=== PATIENT | female | born 1985 | race Caucasian/White ===

== ENCOUNTER 2021-05-18 19:21 | Emergency (ER) | payer OTHER, SELFPAY ==
--- NOTE | ~2021-05-18 | XR_ITS ---
XR chest 1V portable DATE: 05/18/2021 19:58 INDICATION: Chest pain, tachycardia TECHNIQUE: Portable AP chest on 05/18/2021 at 1955 hours COMPARISON: None FINDINGS: Normal heart size. No pulmonary infiltrate or consolidation, pleural effusion or pulmonary vascular congestion or pneumothorax. IMPRESSION: Negative Reviewed, dictated and finalized at location A. V BELT INSPECTOR IMPRESSION: Negative
--- NOTE | 2021-05-18 19:23 | ECG_ITS ---
Measurements Intervals [place] Rate: 123 P: 28 PA: 133 QRS: 35 QRSD: 86 T: 4 QT: 311 QTc: 446 Interpretive Statements SINUS TACHYCARDIA CONSIDER INFERIOR INFARCT, AGE INDETERMINATE BASELINE ARTIFACT- II, III, AVF ABNORMAL ECG Electronically Signed On 05-18-2021 20:45:20 [employer] by Moise Davies D.O.
[2021-05-18 19:24] VITALS: BP 150/109; PULSE 112; RESP 18; TEMP 36.1; O2SAT 100
[2021-05-18 20:20] LABS: Alanine Aminotransferase 46 U/L (4-35); Albumin Level 4.7 g/dL (3.5-5.1); Alkaline Phosphatase 88 U/L (38-126); Anion Gap 11 mmol/L (8-16); Aspartate Amino Transferase 35 U/L (14-36); Bilirubin,Total 0.3 mg/dL (0.2-1.3); Blood Urea Nitrogen 8 mg/dL (7-17); Calcium 9.2 mg/dL (8.4-10.2); Carbon Dioxide 22 mmol/L (22-30); Chloride 105 mmol/L (98-107); Estimated CRCL calculation 130 ml/min; Estimated Glomerular Filt Rate > 60; Glucose 151 mg/dL (65-110); Lipase 70 U/L (23-300); Potassium 4.1 mmol/L (3.4-5.0); Sodium 138 mmol/L (137-145)
[2021-05-18 20:27] LABS: Partial Thromboplastin Time 32.2 SECONDS (22.3-36.8); Prothrombin Time 12.6 Seconds (11.1-14.7)
[2021-05-18 20:32] LABS: Troponin I < 0.012 ng/mL (0.000-0.034)
[2021-05-18 20:58] LABS: Basophils Percent Auto 0.5 % (0.2-1.2); Eosinophils Absolute Auto 0.1 K/mm3 (0-0.3); Eosinophils Percent Auto 1.4 % (0-4.4); Hematocrit 44.8 % (37.0-47.0); Hemoglobin 15.6 g/dL (12.0-15.0); Immature Granulocyte Absolute 0.01 K/mm3 (0.00-0.031); Immature Granulocyte Percent A 0.2 % (0-0.5); Lymphocytes Absolute Auto 2.58 K/mm3 (0.9-3.2); Mean Corpuscular HGB Conc 34.8 g/dl (32-36); Mean Corpuscular Hemoglobin 31.8 pg (26-34); Mean Corpuscular Volume 91.4 fl (80-100); Mean Platelet Volume 10.2 fl (7.4-10.4); Monocytes Absolute Auto 0.6 K/mm3 (0.1-0.6); Monocytes Percent Auto 10.6 % (2.6-8.5); Neutrophils Absolute Auto 2.6 K/mm3 (1.3-6.7); Neutrophils Percent Auto 43.3 % (45.5-73.1); Platelet Count Result 291 k/mm3 (150-375); Red Cell Distribution Width 12.9 % (11.5-14.5); White Blood Count 5.9 K/mm3 (4.5-10.0)
[2021-05-18 21:45] VITALS: BP 126/84; PULSE 105; RESP 18; O2SAT 99
[2021-05-18 22:21] VITALS: BP 131/95; PULSE 102; RESP 24; O2SAT 97
[2021-05-18 22:26] VITALS: PULSE 94
--- NOTE | 2021-05-18 22:28 | ED.CHESTPAIN ---
HPI - Chest Pain General Chief Complaint: Chest Pain Stated Complaint: CP - COVID exposure Time Seen by Provider: 05/18/21 22:21 Source: patient Mode of arrival: ambulatory Limitations: no limitations and clinical condition History of Present Illness HPI narrative: Patient presents with intermittent central chest discomfort for the last 2 days associated with coughing, fever, and possible Covid symptoms. Patient was diagnosed of Covid 2 weeks ago, her daughter was diagnosed of Covid 1 week ago, patient is not vaccinated, did not get the Covid test yet. MD complaint: chest pain Related Data Home Medications Medication Instructions Recorded Confirmed albuterol sulfate [ProAir HFA] 1 puff INHALATION PRN 05/18/21 05/18/21 fluticasone furoate-vilanterol 1 inh INHALATION HS 05/18/21 05/18/21 [Breo Ellipta] hydroxyzine HCl 20 mg PO HS 05/18/21 05/18/21 lisinopril 10 mg PO PRN 05/18/21 05/18/21 loratadine 10 mg PO HS 05/18/21 05/18/21 montelukast mg HS 05/18/21 Allergies Allergy/AdvReac Type Severity Reaction Status Date / Time nifedipine AdvReac Rash Verified 05/18/21 22:38 Review of Systems Review of Systems: CONSTITUTIONAL: Denies fever, chills, or sweats. EYES: Denies visual changes, redness, or discharge. ENT: Denies rhinorrhea, congestion, sore throat, or otalgia. CARDIOVASCULAR: Denies chest pain, palpitations, or edema. RESPIRATORY: Denies cough or dyspnea. GASTROINTESTINAL: Denies abdominal pain, nausea, vomiting, or diarrhea. GENITOURINARY: Denies dysuria or hematuria. SKIN: Denies rash or itching. MUSCULOSKELETAL: Denies back pain, joint pain, or myalgia. NEUROLOGIC: Denies headache, numbness, or weakness. PSYCHIATRIC: Denies anxiety or depression. Exam Narrative: General appearance: Well-developed, well-nourished Skin: Normal color Head: Normocephalic, nontraumatic Eyes: Clear conjunctiva ENT: Oropharynx normal, ears normal, nose normal Neck: Supple, nontender Chest and respiratory: Airway patent, no respiratory distress, no accessory muscle use Heart: Tachycardia Abdomen: Soft, nontender, no organomegaly, quiet bowel sounds Vascular: Normal peripheral pulses, normal capillary refill. Musculoskeletal: Normal range of motion, nontender back Neurologic: Alert and oriented ?3, BUTT TRIMMER is normal as tested, no gross motor deficit Course Course Emergency Course: Stable Vital Signs Vital signs: Vital Signs Temperature 36.1 C L 05/18/21 19:24 Pulse Rate 112 H 05/18/21 19:24 Respiratory Rate 18 05/18/21 19:24 Blood Pressure 150/109 H 05/18/21 19:24 Pulse Oximetry 100 05/18/21 19:24 Temperature 36.1 C L 05/18/21 19:24 Pulse Rate 94 05/18/21 22:26 Respiratory Rate 24 H 05/18/21 22:21 Blood Pressure 131/95 H 05/18/21 22:21 Pulse Oximetry 97 05/18/21 22:21 MDM - Chest Pain MDM Narrative Medical decision making narrative: Patient presents with intermittent retrosternal pain, plus Covid symptoms Differential Diagnosis Differential diagnosis: Likely pneumothorax, stable angina, atypical chest pain, costochondritis and chest pain Lab Data Result diagrams: 05/18/21 19:51 05/18/21 19:51 Labs: Lab Results 05/18/21 05/18/21 05/18/21 Range/Units 19:51 19:51 19:51 WBC 5.9 (4.5-10.0) K/mm3 RBC 4.90 (4.2-5.4) M/mm3 Hgb 15.6 H (12.0-15.0) g/dL Hct 44.8 (37.0-47.0) % MCV 91.4 (80-100) fl MCH 31.8 (26-34) pg MCHC 34.8 (32-36) g/dl RDW 12.9 (11.5-14.5) % Plt Count 291 (150-375) k/mm3 MPV 10.2 (7.4-10.4) fl Immature Gran % (Auto) 0.2 (0-0.5) % Neut % (Auto) 43.3 L (45.5-73.1) % Lymph % (Auto) 44.0 (18.3-
[2021-05-18 23:14] LABS: D Dimer 0.66 ug/mL (<0.48)
[2021-05-18 23:27] VITALS: BP 130/89; PULSE 90; RESP 17; O2SAT 98
[2021-05-18 23:29] LABS: Troponin I < 0.012 ng/mL (0.000-0.034)
[2021-05-19 00:33] VITALS: PULSE 87; RESP 15; O2SAT 99
[2021-05-19 19:36] LABS: SARS-CoV-2 RNA PCR Positive
== END 2021-05-19 00:34 | disposition home or self-care (01) ==
LOC: ANHED 22:57
PROVIDERS: Emergency Medicine; Emergency Provider Emergency Medicine
DX: U07.1 COVID-19 (principal); R07.89 Other chest pain; R00.0 Tachycardia, unspecified; R94.31 Abnormal electrocardiogram [ECG] [EKG]
CPT/HCPCS: 36415; 71045; 80053; 81025; 83690; 84443; 84484; 85025; 85380; 85610; 85730; 93005; 99284; C9803; U0003; U0005

== ENCOUNTER 2022-07-24 15:16 | Emergency (ER) | payer OTHER, SELFPAY ==
[2022-07-24 16:09] VITALS: BP 152/99; PULSE 95; RESP 18; TEMP 36.6; O2SAT 98
[2022-07-24 16:21] LABS: Basophils Percent Auto 0.4 % (0.2-1.2); Eosinophils Absolute Auto 0.1 K/mm3 (0-0.3); Eosinophils Percent Auto 1.2 % (0-4.4); Hematocrit 42.3 % (37.0-47.0); Hemoglobin 14.6 g/dL (12.0-15.0); Immature Granulocyte Absolute 0.02 K/mm3 (0.00-0.031); Immature Granulocyte Percent A 0.2 % (0-0.5); Lymphocytes Absolute Auto 2.11 K/mm3 (0.9-3.2); Lymphocytes Percent Auto 23.1 % (18.3-44.2); Mean Corpuscular HGB Conc 34.5 g/dl (32-36); Mean Corpuscular Volume 89.8 fl (80-100); Mean Platelet Volume 9.7 fl (7.4-10.4); Monocytes Absolute Auto 0.6 K/mm3 (0.1-0.6); Monocytes Percent Auto 6.9 % (2.6-8.5); Neutrophils Absolute Auto 6.2 K/mm3 (1.3-6.7); Neutrophils Percent Auto 68.2 % (45.5-73.1); Platelet Count Result 297 k/mm3 (150-375); Red Blood Count 4.71 M/mm3 (4.2-5.4); Red Cell Distribution Width 12.8 % (11.5-14.5); White Blood Count 9.2 K/mm3 (4.5-10.0)
[2022-07-24 16:25] LABS: Appearance Urine Clear (Clear); Bacteria Urine None Seen /hpf; Bilirubin Urine Negative (Negative); Blood Urine 3+ (Negative); Color Urine Yellow (Yellow); Glucose Urine UA Negative (Negative); Ketones Urine Negative (Negative); Leukocyte Esterase Ur Trace LEU/UL (Negative); Nitrate Urine Negative (Negative); Non Pathogenic Casts 0-2; Protein Urine Trace mg/dL (Negative); RBC Urine 51-100 /hpf (0-2); Specific Grav Ur 1.009 (1.001-1.035); Squamous Epithelial Cell Urine Occasional /hpf (Few); Urobilinogen Urine 0.2 mg/dL (<2.0); WBC Urine 0-5 /hpf
[2022-07-24 16:30] LABS: Alanine Aminotransferase 40 U/L (6-35); Albumin Level 4.6 g/dL (3.5-5.1); Alkaline Phosphatase 74 U/L (38-126); Anion Gap 11 mmol/L (8-16); Aspartate Amino Transferase 28 U/L (14-36); Bilirubin,Total 0.5 mg/dL (0.2-1.3); Blood Urea Nitrogen 14 mg/dL (7-17); Calcium 9.4 mg/dL (8.4-10.2); Carbon Dioxide 23 mmol/L (22-30); Chloride 106 mmol/L (98-107); Estimated CRCL calculation 131 ml/min; Estimated Glomerular Filt Rate > 60; Glucose 154 mg/dL (65-110); Lipase 59 U/L (23-300); Potassium 3.8 mmol/L (3.4-5.0); Sodium 140 mmol/L (137-145)
[2022-07-24 16:41] LABS: Add Urine Microscopic? YES
--- NOTE | 2022-07-24 18:36 | PC.NURSE ---
Pt to the intake desk and states that she wants to leave. Pt states she is not having pain anymore and wants to followup with her Dr. Pt ambulated to the exit with no difficulty
== END 2022-07-24 18:36 | disposition left against medical advice (07) ==
LOC: ANHED 18:51
PROVIDERS: Emergency Medicine
DX: R10.9 Unspecified abdominal pain (principal)
CPT/HCPCS: 36415; 80053; 81001; 83690; 85025; 99199

== ENCOUNTER 2023-09-28 09:20 | Outpatient (CLI) | payer OTHER, SELFPAY ==
--- NOTE | ~2023-09-28 | MMUS_ITS ---
EXAMINATION: MM diagnostic elham LT w rhonda, US breast LT complete HISTORY: Subareolar left breast lump is 2005 with clear/yellowish discharge TECHNIQUE: Additional 3-D tomosynthesis images of the left breast were performed and synthetic 2-D im ages were generated. CAD analysis was submitted and interpreted. High resolution complete left breast ultrasound was performed. COMPARISON: None BREAST PARENCHYMAL COMPOSITION: Not dense: There are scattered areas of fibroglandular density. FINDINGS: MAMMOGRAPHIC FINDINGS: There is a small mass in the subareolar location of the left breast with associated pleomorphic calci fications. There are no suspicious areas of architectural distortion. ULTRASOUND: Complete US of all 4 quadrants of the left breast and retroareolar region was reviewed. There is an o roselyn tubular shaped hypoechoic mass in the subareolar location of the left breast measuring 1.6 x 0.5 cm, sonographic image 43. This corresponds to the mammographic finding. IMPRESSION: 1. Oval hypoechoic tubular structure measuring 1.6 x 0.5 cm within the subareolar location of the lef t breast corresponding to mammographic abnormality and palpable area of concern. 2. Biopsy is recommended. BI-RADS category 4, suspicious findings. Reviewed, dictated and finalized at location B. IMPRESSION: 1. Oval hypoechoic tubular structure measuring 1.6 x 0.5 cm within the subareol ar location of the left breast corresponding to mammographic abnormality and pa lpable area of concern. 2. Biopsy is recommended. BI-RADS category 4, suspicious findings.
== END 2023-09-28 09:21 ==
PROVIDERS: PCP Nurse Practitioner; Visit Provider Nurse Practitioner
DX: N64.4 Mastodynia (principal); N64.52 Nipple discharge; N63.42 Unspecified lump in left breast, subareolar; R92.8 Other abnormal and inconclusive findings on diagnostic imaging of breast
CPT/HCPCS: 76641; 77061; 77065; G0279